=== PATIENT | female | born 1955 | race Hispanic/Latino ===

== ENCOUNTER 2023-04-27 08:07 | Inpatient (IN) | payer MEDICAID, MEDICARE, SELFPAY ==
[2023-04-27 09:31] LABS: Hematocrit 28.1 % (36.0-47.0); Hemoglobin 8.9 g/dL (12.0-16.0); Mean Corpuscular HGB CONC 31.7 g/dL (32.0-36.0); Mean Corpuscular Hemoglobin 25.9 pg (27.0-31.0); Mean Corpuscular Volume 81.9 fl (78.0-98.0); Mean Platelet Volume 9.8 fL (7.4-10.4); Platelet Count 471 10x3/uL (130-400); RBC Distribution Width 16.1 % (11.5-14.5); Red Blood Cell (RBC) Count 3.43 mill/uL (4.20-5.40); White Blood Cell (WBC) Count 10.8 10x3/uL (4.8-10.8)
[2023-04-27 09:40] LABS: Delete Auto Diff?? YES; Manual Diff?? YES
[2023-04-27] MEDS ORDERED: Morphine 4 MG/ML VIAL ONE (09:40)
[2023-04-27] MEDS ORDERED: Ondansetron PF 4 MG/2 ML Vial ONE (09:40)
[2023-04-27 09:58] LABS: ALT (SGPT) 20 U/L (8-55); AST (SGOT) 23 U/L (5-34); Albumin 3.7 g/dL (3.4-4.8); Alkaline Phosphatase 113 U/L (40-110); Anion Gap 17 mmol/L (10-20); BUN (Urea Nitrogen) 30 mg/dL (9.8-20.1); Bilirubin, Total 0.8 mg/dL (0.2-1.2); Calc. Creatinine Clearance 0 mL/min (70-130); Calcium 9.8 mg/dL (7.8-10.44); Carbon Dioxide 17 mmol/L (23-31); Chloride 107 mmol/L (98-107); Estimated GFR 31; Globulin 3.5 g/dL (2.4-3.5); Glucose 117 mg/dL (80-115); Lipase 41 U/L (8-78); Potassium 4.4 mmol/L (3.5-5.1); Protein, Total 7.2 g/dL (5.8-8.1); Sodium 137 mmol/L (136-145)
[2023-04-27 10:02] LABS: Troponin I Less than 0.010 ng/mL (< 0.028)
[2023-04-27 10:12] LABS: Band 45 % (5-11); Burr Cells SLIGHT = 2-5 cells HPF (0-1); CellaVision Operator ID LAB.GE; Eosinophils 1 % (0-10); Large Platelets 2.9 % (0-5); Lymphocytes 6 % (21-51); Metamyelocyte 6 % (0-0); Monocytes 2 % (0-10); Neutrophil 40 % (42-75); Platelet Adequacy Comment Platelets Increased; Polychromasia SLIGHT = 2-3 cells HPF (0-2); Smudge Cells 1.9 %; Total Cell Count 104
[2023-04-27 10:13] LABS: Vacuoles MODERATE
[2023-04-27 10:22] LABS: Bilirubin 1+ (Negative); Blood, Urine 3+ (Negative); CAUTI Indications for Culture Pelvic or flank pain; Glucose, Urine (Dipstick) Normal (Negative); Ketone, Urine Negative (Negative); Leukocyte Negative Leu/uL (Negative); Nitrite Negative (Negative); Protein, Urine (Dipstick) 50 mg/dL (Neg-Trace); RBC/HPF 0-3 HPF (0-3); Specific Gravity, Urine 1.025 (1.002-1.036); Squamous Epithelial 0-3 HPF (0-3); Urobilinogen 3 mg/dL (Less than 2); WBC/HPF 0-3 HPF (0-3); pH, Urine 5.5 (5.0-9.0)
[2023-04-27 10:23] LABS: Bacteria/HPF Rare-Few HPF (None Seen)
[2023-04-27 10:24] LABS: Clarity Hazy (Clear); Urine Culture Reflex No No
[2023-04-27] MEDS ORDERED: Piperacillin/Tazobactam 4.5 GM VIAL ONE (10:35)
[2023-04-27] MEDS ORDERED: Naloxone HCl 0.4 mg/ml Vial IV PRN (13:03)
[2023-04-27] MEDS ORDERED: diphenhydrAMINE 50 MG/ML VIAL IVP PRN (13:03)
[2023-04-27] MEDS ORDERED: diphenhydrAMINE 25 MG CAP PO PRN (13:03)
[2023-04-27] MEDS ORDERED: Promethazine HCl 25 MG/ML VIAL IM PRN (13:03)
[2023-04-27] MEDS ORDERED: diphenhydrAMINE 50 MG/ML VIAL IM PRN (13:03)
[2023-04-27] MEDS ORDERED: HYDROmorphone 10 mg/100 ml CADD IVPB PRN (13:03)
[2023-04-27] MEDS ORDERED: Communication Order-Pharmacy FS SCH (13:15)
[2023-04-27 14:24] VITALS: BMI 33.0
[2023-04-27] MEDS ORDERED: Iopamidol-370 76% 500 ML MDV (1 ML CHARGE) ONE (14:35)
[2023-04-27] MEDS: Piperacillin/Tazobactam 3.375 GM in Sodium Chloride 0.9% 100 ML IVPB SCH (15:11)
[2023-04-28] MEDS: Piperacillin/Tazobactam 3.375 GM in Sodium Chloride 0.9% 100 ML IVPB SCH ×4 (00:01→23:18)
[2023-04-28 07:56] LABS: Hematocrit 23.5 % (36.0-47.0); Hemoglobin 7.2 g/dL (12.0-16.0); Mean Corpuscular HGB CONC 30.6 g/dL (32.0-36.0); Mean Corpuscular Hemoglobin 25.4 pg (27.0-31.0); Mean Platelet Volume 9.6 fL (7.4-10.4); Platelet Count 421 10x3/uL (130-400); RBC Distribution Width 16.3 % (11.5-14.5); Red Blood Cell (RBC) Count 2.83 mill/uL (4.20-5.40); White Blood Cell (WBC) Count 6.5 10x3/uL (4.8-10.8)
[2023-04-28 08:07] LABS: Delete Auto Diff?? YES; Manual Diff?? YES
[2023-04-28] MEDS ORDERED: Lactated Ringer's 1,000 ML IV SCH (08:30)
[2023-04-28] MEDS: Lactated Ringer's 1,000 ML IV SCH ×3 (09:10→16:54)
[2023-04-28] MEDS: Famotidine 20 MG TAB PO SCH (09:10)
[2023-04-28] MEDS: Amlodipine 5 MG TAB PO SCH (09:11)
[2023-04-28 10:10] LABS: Band 24 % (5-11); Eosinophils 9 % (0-10); Lymphocytes 10 % (21-51); Monocytes 5 % (0-10); Neutrophil 52 % (42-75)
[2023-04-28 10:25] LABS: Giant Platelets SLIGHT HPF (0-5); Hypochromia SLIGHT = 6-15 cells (100X) (0-5/hpf)
[2023-04-28 10:26] LABS: Large Platelets SLIGHT (None Seen); Platelet Adequacy Comment Platelets Increased
[2023-04-28] MEDS: Acetaminophen/Codeine 30-300mg Tablet PO SCH ×3 (12:19→23:17)
[2023-04-28] MEDS: Acetaminophen 325 MG TAB PO SCH ×3 (12:19→23:15)
[2023-04-28 15:07] LABS: Anion Gap 12 mmol/L (10-20); BUN (Urea Nitrogen) 24 mg/dL (9.8-20.1); Calc. Creatinine Clearance 53 mL/min (70-130); Carbon Dioxide 20 mmol/L (23-31); Chloride 110 mmol/L (98-107); Estimated GFR 47; Glucose 94 mg/dL (80-115); Sodium 138 mmol/L (136-145)
[2023-04-28] MEDS: Senokot S 8.6-50 MG TAB PO SCH (20:26)
[2023-04-29] MEDS: Lactated Ringer's 1,000 ML IV SCH ×2 (03:53→20:39)
[2023-04-29] MEDS: Acetaminophen 325 MG TAB PO SCH ×3 (05:55→18:18)
[2023-04-29] MEDS: Levothyroxine Sodium 25 MCG TAB PO SCH (05:56)
[2023-04-29] MEDS: Acetaminophen/Codeine 30-300mg Tablet PO SCH ×3 (05:56→18:19)
[2023-04-29 06:02] LABS: #Eosinphils 0.8 thou/uL (0.0-0.7); #Monocytes 0.6 thou/uL (0.11-0.59); #Neutrophils 8.5 thou/uL (1.40-6.50); %Basophils 0.2 % (0.0-1.0); %Eosinophils 6.8 % (0.0-10.0); %Lymphocytes 11.1 % (21.0-51.0); %Neutrophils 76.4 % (42.0-75.0); Hematocrit 22.2 % (36.0-47.0); Hemoglobin 6.9 g/dL (12.0-16.0); Mean Corpuscular HGB CONC 31.1 g/dL (32.0-36.0); Mean Corpuscular Hemoglobin 25.9 pg (27.0-31.0); Mean Corpuscular Volume 83.5 fl (78.0-98.0); Mean Platelet Volume 9.5 fL (7.4-10.4); Platelet Count 405 10x3/uL (130-400); RBC Distribution Width 16.2 % (11.5-14.5); Red Blood Cell (RBC) Count 2.66 mill/uL (4.20-5.40); White Blood Cell (WBC) Count 11.2 10x3/uL (4.8-10.8)
[2023-04-29 06:23] LABS: Anion Gap 13 mmol/L (10-20); BUN (Urea Nitrogen) 19 mg/dL (9.8-20.1); Calc. Creatinine Clearance 64 mL/min (70-130); Calcium 8.8 mg/dL (7.8-10.44); Carbon Dioxide 21 mmol/L (23-31); Chloride 108 mmol/L (98-107); Estimated GFR 58; Glucose 93 mg/dL (80-115); Potassium 3.9 mmol/L (3.5-5.1); Sodium 138 mmol/L (136-145)
[2023-04-29 06:36] LABS: PTT 42.9 sec (22.9-36.1)
[2023-04-29 06:37] LABS: INR-International Normal Ratio 1.3; Prothrombin Time 16.3 sec (12.0-14.7)
[2023-04-29] MEDS: Piperacillin/Tazobactam 3.375 GM in Sodium Chloride 0.9% 100 ML IVPB SCH ×3 (08:54→23:24)
[2023-04-29] MEDS: Polyethylene Glycol 3350 17 GM Packet PO SCH (08:54)
[2023-04-29] MEDS: Senokot S 8.6-50 MG TAB PO SCH ×2 (08:54→19:43)
[2023-04-29] MEDS: Amlodipine 5 MG TAB PO SCH (08:54)
[2023-04-29] MEDS: Famotidine 20 MG TAB PO SCH (08:55)
[2023-04-29] MEDS: Ondansetron PF 4 MG/2 ML Vial IVP PRN (14:45)
[2023-04-29] MEDS: Cyclobenzaprine 10 MG TAB PO PRN (21:51)
[2023-04-30] MEDS: Acetaminophen 325 MG TAB PO SCH ×5 (00:53→23:30)
[2023-04-30] MEDS: Acetaminophen/Codeine 30-300mg Tablet PO SCH ×5 (00:53→23:31)
[2023-04-30] MEDS: Levothyroxine Sodium 25 MCG TAB PO SCH (06:16)
[2023-04-30] MEDS: Senokot S 8.6-50 MG TAB PO SCH ×2 (08:31→21:25)
[2023-04-30] MEDS: Lactated Ringer's 1,000 ML IV SCH ×2 (08:31→22:33)
[2023-04-30] MEDS: Piperacillin/Tazobactam 3.375 GM in Sodium Chloride 0.9% 100 ML IVPB SCH ×3 (08:31→23:33)
[2023-04-30] MEDS: Amlodipine 5 MG TAB PO SCH (08:31)
[2023-04-30] MEDS: Polyethylene Glycol 3350 17 GM Packet PO SCH (08:31)
[2023-04-30] MEDS: Famotidine 20 MG TAB PO SCH (08:31)
[2023-04-30 09:48] LABS: #Basophils 0.1 thou/uL (0.0-0.2); #Eosinphils 0.5 thou/uL (0.0-0.7); #Monocytes 0.5 thou/uL (0.11-0.59); #Neutrophils 13.1 thou/uL (1.40-6.50); %Basophils 0.3 % (0.0-1.0); %Eosinophils 3.4 % (0.0-10.0); %Lymphocytes 5.6 % (21.0-51.0); %Monocytes 3.1 % (0.0-10.0); %Neutrophils 85.8 % (42.0-75.0); Hematocrit 30.4 % (36.0-47.0); Hemoglobin 9.6 g/dL (12.0-16.0); Mean Corpuscular HGB CONC 31.6 g/dL (32.0-36.0); Mean Corpuscular Hemoglobin 26.1 pg (27.0-31.0); Mean Corpuscular Volume 82.6 fl (78.0-98.0); Mean Platelet Volume 9.5 fL (7.4-10.4); Platelet Count 479 10x3/uL (130-400); RBC Distribution Width 16.3 % (11.5-14.5); Red Blood Cell (RBC) Count 3.68 mill/uL (4.20-5.40); White Blood Cell (WBC) Count 15.3 10x3/uL (4.8-10.8)
[2023-04-30] MEDS: Fenofibrate Nanocrystallized 145 MG TAB PO SCH (21:24)
[2023-05-01] MEDS: Acetaminophen 325 MG TAB PO SCH ×4 (06:31→23:35)
[2023-05-01] MEDS: Levothyroxine Sodium 25 MCG TAB PO SCH (06:32)
[2023-05-01] MEDS: Acetaminophen/Codeine 30-300mg Tablet PO SCH ×4 (06:32→23:35)
[2023-05-01] MEDS: Piperacillin/Tazobactam 3.375 GM in Sodium Chloride 0.9% 100 ML IVPB SCH ×3 (08:28→23:35)
[2023-05-01] MEDS: Amlodipine 5 MG TAB PO SCH (08:28)
[2023-05-01] MEDS: Senokot S 8.6-50 MG TAB PO SCH ×2 (08:29→21:22)
[2023-05-01] MEDS: Polyethylene Glycol 3350 17 GM Packet PO SCH (08:29)
[2023-05-01] MEDS: Famotidine 20 MG TAB PO SCH (08:29)
[2023-05-01 09:05] LABS: #Eosinphils 0.9 thou/uL (0.0-0.7); #Monocytes 0.9 thou/uL (0.11-0.59); #Neutrophils 10.7 thou/uL (1.40-6.50); %Basophils 0.3 % (0.0-1.0); %Eosinophils 6.1 % (0.0-10.0); %Lymphocytes 9.1 % (21.0-51.0); %Monocytes 6.4 % (0.0-10.0); %Neutrophils 74.4 % (42.0-75.0); Hematocrit 30.7 % (36.0-47.0); Hemoglobin 9.8 g/dL (12.0-16.0); Mean Corpuscular HGB CONC 31.9 g/dL (32.0-36.0); Mean Corpuscular Hemoglobin 26.5 pg (27.0-31.0); Mean Platelet Volume 9.1 fL (7.4-10.4); Platelet Count 474 10x3/uL (130-400); RBC Distribution Width 16.5 % (11.5-14.5); White Blood Cell (WBC) Count 14.4 10x3/uL (4.8-10.8)
[2023-05-01] MEDS: Cyclobenzaprine 10 MG TAB PO PRN (21:22)
[2023-05-01] MEDS: Fenofibrate Nanocrystallized 145 MG TAB PO SCH (21:22)
[2023-05-02] MEDS: Acetaminophen 325 MG TAB PO SCH ×5 (05:09→23:43)
[2023-05-02] MEDS: Acetaminophen/Codeine 30-300mg Tablet PO SCH ×5 (05:10→23:42)
[2023-05-02] MEDS: Levothyroxine Sodium 25 MCG TAB PO SCH (05:10)
[2023-05-02] MEDS ORDERED: LevoFLOXacin 750 mg/D5W 750 MG in Premix Bag 1 BAG IVPB SCH (08:30)
[2023-05-02] MEDS: Piperacillin/Tazobactam 3.375 GM in Sodium Chloride 0.9% 100 ML IVPB SCH (09:08)
[2023-05-02] MEDS: Ondansetron PF 4 MG/2 ML Vial IVP PRN ×2 (09:28→19:39)
[2023-05-02] MEDS: Senokot S 8.6-50 MG TAB PO SCH ×2 (10:02→19:40)
[2023-05-02] MEDS: Amlodipine 5 MG TAB PO SCH (10:02)
[2023-05-02] MEDS: Famotidine 20 MG TAB PO SCH (10:02)
[2023-05-02] MEDS: Polyethylene Glycol 3350 17 GM Packet PO SCH (10:02)
[2023-05-02] MEDS ORDERED: metroNIDAZOLE 500 MG in Premix Bag 1 BAG IVPB SCH (14:00)
[2023-05-02] MEDS ORDERED: metroNIDAZOLE 500 MG TAB PO SCH (15:00)
[2023-05-02] MEDS: metroNIDAZOLE 500 MG TAB PO SCH ×2 (16:10→19:39)
[2023-05-02] MEDS: Fenofibrate Nanocrystallized 145 MG TAB PO SCH (19:40)
[2023-05-03] MEDS: Acetaminophen/Codeine 30-300mg Tablet PO SCH ×2 (05:33→11:26)
[2023-05-03] MEDS: Levothyroxine Sodium 25 MCG TAB PO SCH (05:34)
[2023-05-03] MEDS: Acetaminophen 325 MG TAB PO SCH ×2 (05:34→11:26)
[2023-05-03 07:15] VITALS: TEMP 98.3
[2023-05-03 08:19] LABS: #Eosinphils 0.6 thou/uL (0.0-0.7); #Monocytes 0.9 thou/uL (0.11-0.59); #Neutrophils 9.8 thou/uL (1.40-6.50); %Basophils 0.3 % (0.0-1.0); %Eosinophils 4.1 % (0.0-10.0); %Lymphocytes 13.4 % (21.0-51.0); %Monocytes 6.7 % (0.0-10.0); %Neutrophils 71.4 % (42.0-75.0); Hematocrit 29.1 % (36.0-47.0); Hemoglobin 9.4 g/dL (12.0-16.0); Mean Corpuscular HGB CONC 32.3 g/dL (32.0-36.0); Mean Corpuscular Hemoglobin 26.3 pg (27.0-31.0); Mean Corpuscular Volume 81.3 fl (78.0-98.0); Mean Platelet Volume 9.1 fL (7.4-10.4); Platelet Count 548 10x3/uL (130-400); RBC Distribution Width 16.7 % (11.5-14.5); Red Blood Cell (RBC) Count 3.58 mill/uL (4.20-5.40); White Blood Cell (WBC) Count 13.7 10x3/uL (4.8-10.8)
[2023-05-03] MEDS: metroNIDAZOLE 500 MG TAB PO SCH (08:27)
[2023-05-03] MEDS: Polyethylene Glycol 3350 17 GM Packet PO SCH (08:28)
[2023-05-03] MEDS: Amlodipine 5 MG TAB PO SCH (08:28)
[2023-05-03] MEDS: Famotidine 20 MG TAB PO SCH (08:28)
[2023-05-03] MEDS: Senokot S 8.6-50 MG TAB PO SCH (08:28)
[2023-05-03 08:53] LABS: Anion Gap 14 mmol/L (10-20); BUN (Urea Nitrogen) 13 mg/dL (9.8-20.1); Calc. Creatinine Clearance 71 mL/min (70-130); Calcium 9.1 mg/dL (7.8-10.44); Carbon Dioxide 22 mmol/L (23-31); Chloride 105 mmol/L (98-107); Estimated GFR 67; Glucose 96 mg/dL (80-115); Potassium 3.5 mmol/L (3.5-5.1); Sodium 137 mmol/L (136-145)
[2023-05-03] MEDS ORDERED: LevoFLOXacin 750 MG TAB PO SCH ×2 (10:00)
[2023-05-03 12:43] VITALS: BP 111/72
== END 2023-05-03 14:22 | disposition home or self-care (01) | DRG 391 ==
LOC: ERS 08:07 → T4-A 13:46 → EDBD 14:04 → T4-A 14:04
PROVIDERS: ADMIT Surgery; ATTEND Surgery
PROC: 30233N1 Transfusion of Nonautologous Red Blood Cells into Peripheral Vein, Percutaneous Approach (ICD-10-PCS; principal; 2023-04-29)
DX: K57.20 Diverticulitis of large intestine with perforation and abscess without bleeding (principal); K65.0 Generalized (acute) peritonitis; N17.9 Acute kidney failure, unspecified; D62 Acute posthemorrhagic anemia; R78.81 Bacteremia; E03.9 Hypothyroidism, unspecified; K21.9 Gastro-esophageal reflux disease without esophagitis; E78.5 Hyperlipidemia, unspecified; I10 Essential (primary) hypertension; M06.9 Rheumatoid arthritis, unspecified; B96.20 Unspecified Escherichia coli [E. coli] as the cause of diseases classified elsewhere; Z90.49 Acquired absence of other specified parts of digestive tract; Z90.710 Acquired absence of both cervix and uterus; Z87.891 Personal history of nicotine dependence
CPT/HCPCS: 36415; 36430; 51701; 71045; 74177; 80048; 80053; 81001; 82274; 83605; 83690; 84484; 85025; 85610; 85730; 86850; 86900; 86901; 87040; 87077; 87086; 87149; 87186; 93005; 96365; 96366; 96375; J1650; J1956; J2270; J2405; J2543; J3490; J7120; P9016; Q9967